=== PATIENT | female | born 1965 | race Two or more races ===

== ENCOUNTER 2017-11-17 12:27 | Emergency (ER) | payer OTHER ==
[~2017-11-17] VITALS: Ht 157.5 cm; Wt 62.1 kg
[2017-11-17] MEDS ORDERED: LOSARTAN-HCTZ1 EAC2 ORAL (12:34)
[2017-11-17 12:40] VITALS: BP 142/82
[2017-11-17] MEDS ORDERED: ROBAXIN500 MG PO (12:58)
[2017-11-17] MEDS ORDERED: TYLENOL EXTRA500 MG ORAL (12:58)
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
[2017-11-17] MEDS ORDERED: Methocarbamol 500mg tab ORAL ONE (13:00)
== END 2017-11-17 13:39 | disposition home or self-care (01) ==
LOC: EMR 13:03
DX: S09.90XA Unspecified injury of head, initial encounter (principal); S16.1XXA Strain of muscle, fascia and tendon at neck level, initial encounter; Y04.2XXA Assault by strike against or bumped into by another person, initial encounter; Y93.F9 Activity, other caregiving; Y92.129 Unspecified place in nursing home as the place of occurrence of the external cause; Y99.0 Civilian activity done for income or pay; I10 Essential (primary) hypertension
CPT/HCPCS: 99283